=== PATIENT | female | born 1955 | race Two or more races ===

== ENCOUNTER 2022-02-26 17:52 | Emergency (ER) | payer OTHER, MEDICARE ==
[~2022-02-26] VITALS: Ht 162.6 cm; Wt 51.7 kg
[2022-02-26 18:39] VITALS: BP_SYST 145
[2022-02-26] MEDS ORDERED: ACETAMINOPHEN 500 MG TABLET PO ONE (19:30)
--- NOTE | 2022-02-26 20:00 | NUR ---
Dr. Toscano assessing pt in triage room.
--- NOTE | 2022-02-26 21:00 | NUR ---
Pt assessed in ER waiting room. Pt s/p tripped on a stair causing her to fall onto her face and injur her right ankle. Abrasion and ecchymosis noted to nose and forehead with swelling to right ankle. No deformities noted. Pt c/o H/A and right ankle pain. Denies LOC. present with pt.
[2022-02-26] MEDS ORDERED: KETOROLAC TROMETHAMINE 60 MG/2 ML VIAL IM ONE (21:15)
[2022-02-26] MEDS ORDERED: ONDANSETRON 4 MG ODT TAB PO ONE (21:15)
--- NOTE | 2022-02-26 21:30 | NUR ---
Aircast applied to right ankle per EMT.
[2022-02-26] MEDS ORDERED: ONDA-8 TL (21:56)
[2022-02-26] MEDS ORDERED: IBUP-1971 PO (21:56)
[2022-02-26 22:56] VITALS: BP_SYST 152
--- NOTE | 2022-02-26 22:56 | NUR ---
Patient given written and verbal discharge instructions and verbalizes understanding. ER MD discussed with patient the results and treatment provided. Patient in stable condition. ID arm band removed. Rx of Motrin and Zofran given. Patient educated on pain management and to follow up with PMD. Pain Scale 3/10. Opportunity for questions provided and answered. Medication side effect fact sheet provided.
== END 2022-02-26 22:56 | disposition home or self-care (01) ==
LOC: SED 17:52
DX: S06.0X0A Concussion without loss of consciousness, initial encounter (principal); S93.401A Sprain of unspecified ligament of right ankle, initial encounter; R11.0 Nausea; Z79.899 Other long term (current) drug therapy; W01.0XXA Fall on same level from slipping, tripping and stumbling without subsequent striking against object, initial encounter; Y93.89 Activity, other specified; Y92.89 Other specified places as the place of occurrence of the external cause; Y99.8 Other external cause status
CPT/HCPCS: 99284; 70450; 73610; 76376; 96372; Q0162; J1885